=== PATIENT | male | born 1960 | race Caucasian/White ===

== ENCOUNTER 2018-07-26 02:17 | Inpatient (IN) | payer OTHER ==
[2018-07-26] VITALS (7 sets, daily range): BP systolic 104–151; BP diastolic 61–74
[~2018-07-26] VITALS: Ht 188 cm; Wt 129.3 kg
[~2018-07-26 02:17] MED LIST: BENADRYL25 MG PO; PREDNISONE 20 M20 MG PO
[2018-07-26] MEDS ORDERED: HYDROCHLOROTH12.5 M1 PO (02:23)
[2018-07-26] MEDS ORDERED: PRINIVIL10 MG PO (02:23)
[2018-07-26 03:13] LABS: ABSOLUTE NEUTROPHILS 6.1 thou/uL (1.4-8.2); BASOPHILS 0.7 % (0.0-2.0); EOSINOPHILS 1.2 % (0.0-3.0); HEMATOCRIT 46.8 % (42.0-52.0); HEMOGLOBIN 15.9 gm/dL (14.0-18.0); LYMPHOCYTES 19.2 % (24.0-44.0); MCH 30.9 pg (26.0-34.0); MCV 90.8 fL (80.0-100.0); PLATELET COUNT 202 thou/uL (150-400); POLYS 67.9 % (36.0-66.0); RBC 5.15 mil/uL (4.50-6.00); RDW 13.1 % (10.5-14.5); WBC 8.9 thou/uL (4.0-11.0)
[2018-07-26 03:19] LABS: CALCIUM 10.4 mg/dL (8.5-10.1); CREATININE 1.1 mg/dL (0.7-1.3); POTASSIUM 4.2 mmol/L (3.5-5.1)
[2018-07-26 05:15] LABS: URINE BILIRUBIN NEGATIVE (Negative); URINE BLOOD NEGATIVE (Negative); URINE CLARITY CLEAR; URINE COLOR YELLOW; URINE GLUCOSE-RANDOM* NEGATIVE (Negative); URINE KETONES NEGATIVE (Negative); URINE LEUKOCYTES NEGATIVE (Negative); URINE NITRITE NEGATIVE (Negative); URINE PROTEIN (DIPSTICK) NEGATIVE (Negative); URINE SPECIFIC GRAVITY >= 1.030 (1.005-1.035); URINE UROBILINOGEN 0.2 E.U./dl (0.2-1.0)
[2018-07-26] MEDS ORDERED: FLEXERIL PO (05:27)
--- NOTE | 2018-07-26 06:24 | NUR ---
pt lives alone
[2018-07-26] MEDS ORDERED: ASPIR 8181 MG PO (08:52)
--- NOTE | 2018-07-26 12:30 | NUR ---
chart review, pt up in bed eyes closed, open to calling of his name x 2. intro to cm, and transition of care . pt reported " live home alone, no step to enter, 15 with hr to basement but do not go down often. no dme, works outside home- standing allot. manage own medication " just 1 blood presser bill and still drive vehicle. have support from family and friends if needed. use [facility] [address] for rx, have bcbs. pcp dr arnold."/haley. no co during visit. will cont following as needed for dc needs.
[2018-07-26 13:27] LABS: URIC ACID* 7.8 mg/dL (2.6-7.2)
[2018-07-26 18:13] LABS: SOURCE SYNOVIAL
[2018-07-26 18:31] LABS: BF CRYSTALS No Crystals seen
--- NOTE | 2018-07-26 18:39 | NUR ---
PT A&OX4, VSS, DENIES PAIN BUT FEELS CRAMPING IN LEFT LEG. PT TOLERATED WALKING WITH PHYSICAL THERAPY WELL. PT STATES THE PAIN DECREASES WITH MOVEMENT. MRI DUE TOMORROW. FALL PRECAUTIONS IN PLACE. WILL CONTINUE TO MONITOR.
--- NOTE | 2018-07-26 20:25 | NUR ---
REPORT GIVEN TO RECEIVING NURSE IN SENIOR SUITES. SCD SLEEVES WITH PATIENT. DENIED PAIN. AMBULATED TO BATHROOM WITH STAND BY ASSIST AND WALKER, STEADY GAIT. DISCUSSED PROCESS AND PURPOSE OF TRANSFER BEFORE TAKEN DOWN TO SENIOR SUITES VIA WHEELCHAIR BY AIDE.
--- NOTE | 2018-07-26 23:44 | NUR ---
Pt transferred to at 2029. Oriented to the room and call light system. A/OX4,denied pain on assessment. VSS.Up with SBA/RW,ambulating with a limp gait.Voiding without any problems voiced.Resting quietly in bed at this time with no distress noted.Will continue to monitor pt.
[2018-07-27 08:28] VITALS: BP 130/73
--- NOTE | 2018-07-27 14:58 | NUR ---
ASSUMED CARE OF PATIENT THIS MORNING. PATIENT IS A&OX4. PATIENT WILL BE DISCHARGED HOME IN THE MORNING AFTER PHYSICAL THERAPY WORKS WITH PATIENT. HE IS BEEN UP AD SHANNAN WITHIN THE ROOM. HE TOLERATED HIS MORNING MEDICATIONS THIS MORNING. PATIENT IS CURRENTLY LYING IN BED. HE CALLS OUT LEONEL FOR ASSISTANCE.
--- NOTE | 2018-07-27 16:06 | NUR ---
CARE TEAM INDICATED THAT PT WILL LIKELY ME BADICALLY STABLE TO DC HOME WITH NO NEEDS TOMORROW. CM ABLE TO ASSIST SHOULD ANY NEEDS ARISE.
--- NOTE | 2018-07-27 19:41 | NUR ---
I AGREE WITH NURSING ASSESSMENT DONE BY LAURA/SOTO, AND NURSING NOTE.
[2018-07-27 20:20] VITALS: BP 101/61
[2018-07-27 23:03] VITALS: BP 101/61
--- NOTE | 2018-07-28 02:56 | NUR ---
Assumed pt. care at 1900. Remains A&Ox3; swallows meds whole w/o difficulty. Ambulates independently to bathroom w/ steady gait. Last BM 07/27/18, per pt. Remains on lovenox therapy; no s/s of bleeding noted. Kraig wrap intact to L knee. R hand SL intact/flushed w/ NS w/o difficulty. Pt. has no c/o pain or discomfort. No s/s of acute distress noted. Pt/ asleep in bed w/ call light/desired belongings within reach. Po fluids encouraged. Will continue to monitor.
[2018-07-28 07:40] VITALS: BP 134/93
[2018-07-28 10:04] VITALS: BP 134/93
--- NOTE | 2018-07-28 10:58 | NUR ---
ASSUMED CARE OF PATIENT THIS MORNING. PATIENT IS A&OX4. HE'S BEEN GETTING UP AD SHANNAN. PATIENT HAS ONLY COMPLAINED OF MINOR PAIN IN HIS L. KNEE THIS MORNING. HE TOLERATED HIS MORNING MEDICATION. PATIENT TOOK A SHOWER BEFORE BREAKFAST. NO ABNORMAL ASSESSMENT FINDINGS. PATIENT GOING HOME WITH SELF CARE. IV REMOVED BEFORE DISMISSAL. PATIENT WILL BE TAKEN TO OUTPATIENT PHARMACY TO VALUER HIS HOME MEDICATION. VOLUNTEER TRANSPORT PICKED PATIENT UP VIA WHEELCHAIR AND TOOK PATIENT TO VALUER PRESCRIPTION AND TOOK PATIENT TO EMERGENCY ROOM ENTRANCE FOR DEPARTURE. HE WILL FOLLOW UP WITH ORTHOPEDIC AN OUTPATIENT.
== END 2018-07-28 11:15 | disposition home or self-care (01) | DRG 563 ==
LOC: ER 02:17 → EROBS 06:18 → 4W 06:18 → SICU 20:53 → ENTRNSPT 07-28 10:50 → EDTRNSPTSTS 07-28 10:51 → SICU 07-28 11:15
PROVIDERS: Physician Assistant; Student in an Organized Health Care Education/Training Program; ADMIT Internal Medicine
DX: S83.412A Sprain of medial collateral ligament of left knee, initial encounter (principal); I10 Essential (primary) hypertension; M19.90 Unspecified osteoarthritis, unspecified site; M17.12 Unilateral primary osteoarthritis, left knee; T14.8XXA Other injury of unspecified body region, initial encounter; X58.XXXA Exposure to other specified factors, initial encounter; Y93.89 Activity, other specified; Y92.89 Other specified places as the place of occurrence of the external cause; Y99.8 Other external cause status; Z79.82 Long term (current) use of aspirin; Z79.899 Other long term (current) drug therapy
CPT/HCPCS: 15002

== ENCOUNTER 2019-07-02 20:12 | Inpatient (IN) | payer OTHER ==
[~2019-07-02] VITALS: Ht 188 cm; Wt 125.6 kg
[~2019-07-02 20:12] MED LIST changes: +ASPIR 8181 MG PO; +FLEXERIL PO; +HYDROCHLOROTH12.5 M1 PO; +MOBIC15 MG PO; +NORFLEX100 MG PO; +PRINIVIL10 MG PO; +VITAMIN B-12500 MCG PO
[2019-07-02 20:23] VITALS: BP 118/66
[2019-07-02] MEDS ORDERED: SPIRONOLACTONE25 MG PO (20:28)
[2019-07-02] MEDS ORDERED: FUROSEMIDE 20 M20 MG PO (20:29)
[2019-07-02] MEDS ORDERED: LISINOPRIL-HCT1 EACH PO (20:29)
[2019-07-02 21:03] LABS: ABSOLUTE NEUTROPHILS 6.5 thou/uL (1.4-8.2); BASOPHILS 0.6 % (0.0-2.0); EOSINOPHILS 0.3 % (0.0-3.0); HEMATOCRIT 42.8 % (42.0-52.0); HEMOGLOBIN 14.3 gm/dL (14.0-18.0); LYMPHOCYTES 10.6 % (24.0-44.0); MCH 29.9 pg (26.0-34.0); MCHC 33.4 g/dL (28.0-37.0); MCV 89.7 fL (80.0-100.0); PLATELET COUNT 187 thou/uL (150-400); POLYS 79.5 % (36.0-66.0); RBC 4.77 mil/uL (4.50-6.00); RDW 13.8 % (10.5-14.5); WBC 8.1 thou/uL (4.0-11.0)
[2019-07-02 21:11] LABS: CALCIUM 9.8 mg/dL (8.5-10.1); CREATININE 1.1 mg/dL (0.7-1.3); POTASSIUM 4.2 mmol/L (3.5-5.1)
[2019-07-02 21:18] LABS: ALBUMIN 2.9 g/dL (3.4-5.0); TOTAL BILIRUBIN 0.7 mg/dL (<0.1-1.0); TOTAL PROTEIN 7.7 g/dL (6.4-8.2)
[2019-07-02 21:36] LABS: BE(vivo) -2.4 mmol/L (-2 to +3); HCO3 20.2 mmol/L (22.0-26.0); PCO2 29.2 mmHg (35.0-45.0); PO2 61.9 mmHg (80.0-100.0); pH 7.458 (7.360-7.450); sO2 93.2 % (92.0-98.0)
[2019-07-03] VITALS (51 sets, daily range): BP systolic 92–166; BP diastolic 44–99
[2019-07-03 01:11] LABS: URINE BILIRUBIN NEGATIVE (Negative); URINE BLOOD NEGATIVE (Negative); URINE CLARITY CLEAR; URINE COLOR YELLOW; URINE GLUCOSE-RANDOM* NEGATIVE (Negative); URINE KETONES 1+ (Negative); URINE LEUKOCYTES-REFLEX NEGATIVE (Negative); URINE NITRITE-REFLEX NEGATIVE (Negative); URINE PROTEIN (DIPSTICK) TRACE (Negative)
[2019-07-03 03:41] LABS: HEMATOCRIT 39.2 % (42.0-52.0); HEMOGLOBIN 13.3 gm/dL (14.0-18.0); MCH 30.3 pg (26.0-34.0); MCHC 33.8 g/dL (28.0-37.0); MCV 89.6 fL (80.0-100.0); RBC 4.38 mil/uL (4.50-6.00); RDW 14.4 % (10.5-14.5); WBC 7.4 thou/uL (4.0-11.0)
[2019-07-03 03:50] LABS: CALCIUM 9.3 mg/dL (8.5-10.1); CREATININE 1.2 mg/dL (0.7-1.3); POTASSIUM 4.4 mmol/L (3.5-5.1)
--- NOTE | 2019-07-03 04:38 | NUR ---
Admission histoey ans assessments completed. Careplan initiated. Febrile. Frequent mostly dry cough. BP stable. Oxygen 2L/NC sats low to mid 90's. Drinking fluids. IVfluids infusing. Azithromax and Rocephin given apart-no c/o itching. Patient has history of unknown antibiotics that caused itching.
--- NOTE | 2019-07-03 13:07 | EKG ---
[facility] [place] [address] [place] [address] ELECTROCARDIOGRAM REPORT Name: ALFONZO ZEPEDA Room #: 247-P ADM IN M.R.#: [id number] Admission: 07/02/19 Attend Phys: Patel Hernandez MD Discharge: Date of : 60 Report #: [id number] THIS REPORT FOR: cc: [facility] - Clinic physician unknown [facility] [place] - Clinic physician unknown Eber Romano MD ~ THIS REPORT FOR: //name// [facility] ED Test Date: 2019-07-02 Test Time: 20:27:35 Pat Name: ALFONZO ZEPEDA Department: Room: [facility] Gender: M Senior Javascript Engineer: [facility] VALLEYElisabeth : 1960 Requested By: Mitchel Sánchez Order Number: [id number] MD: Eber Romano Measurements Intervals [place] Rate: 115 P: 41 MA: 141 QRS: 89 QRSD: 103 T: 9 QT: 314 QTc: 435 Interpretive Statements Sinus tachycardia Probable left atrial enlargement Borderline ST elevation, lateral leads No previous ECG available for comparison Electronically Signed On 07-03-2019 13:06:01 CDT by Eber Romano [email or web address] <ELECTRONICALLY SIGNED> By: Eber Romano MD 07/03/19 1306 26 26 Eber Romano MD /EPI
--- NOTE | 2019-07-03 14:48 | NUR ---
DR. WINTER HERE. WANTS PT IN NEGATIVE PRESSURE ROOM. COVID RESULTS PENDING AND SHOULD BE READY AT 1900. AGREES TO HOLD OFF ON TRANSFER UNTIL RESULTS COME IN. IF NEGATIVE, PT WILL TRANSFER TO CC TELE ROOM. IF POSITIVE, PT WILL TRANSFER TO - PRESSURE ROOM IN ICU. PT CURRENTLY ASLEEP. WILL GIVE COUGH MEDICINE WHEN HE WAKES UP.
--- NOTE | 2019-07-03 16:12 | NUR ---
COUGH SYRUP GIVEN WITH GOOD RESULTS. PT RESTING. TYLENOL FOR TEMP 39.4
--- NOTE | 2019-07-03 19:11 | NUR ---
END OF SHIFT NOTE. AWAITING COVID RESULTS. PT BETTER POST COUGH MEDICINE TYLENOL GIVEN X 1 FOR FEVER. PT CAN TRANSFER TO CC TELE IF COVID NEGATIVEN
--- NOTE | 2019-07-03 21:00 | NUR ---
PT AOX4. PT HAS A TEMP 101.9 AT 2100, TYLENOL GIVEN AND COOLING MEASURES IMPLEMENTED. PT GIVEN AN IS, ENCOURAGED TO DO SOME DEEP BREATHING EXERCISES. WILL CONTINUE TO MONITOR.
[2019-07-04] VITALS (27 sets, daily range): BP systolic 94–178; BP diastolic 28–96
[2019-07-04 11:17] LABS: HEMATOCRIT 41.4 % (42.0-52.0); HEMOGLOBIN 13.6 gm/dL (14.0-18.0); MCH 29.9 pg (26.0-34.0); MCHC 32.9 g/dL (28.0-37.0); MCV 90.9 fL (80.0-100.0); RBC 4.55 mil/uL (4.50-6.00); RDW 14.5 % (10.5-14.5); WBC 6.8 thou/uL (4.0-11.0)
[2019-07-04 11:26] LABS: CALCIUM 10.1 mg/dL (8.5-10.1); CREATININE 0.8 mg/dL (0.7-1.3)
[2019-07-04 11:29] LABS: POTASSIUM 4.5 mmol/L (3.5-5.1)
--- NOTE | 2019-07-04 13:26 | NUR ---
chart review. cm visited with pt via phone call. he was alert, to talk. intro to cm and transition of care. per pt " lives alone, stairs to basement that not have to go down 13, no dme, manage own medication. drives vehicle. primary care dr jacob in [facility]"/haley and chart. pt does not have home oxygen. will cont following as needed for dc needs.
[2019-07-04 15:37] LABS: BE(vivo) -0.6 mmol/L (-2 to +3); HCO3 22.6 mmol/L (22.0-26.0); PCO2 32.9 mmHg (35.0-45.0); PO2 78.1 mmHg (80.0-100.0); pH 7.455 (7.360-7.450); sO2 96.2 % (92.0-98.0)
--- NOTE | 2019-07-04 18:11 | NUR ---
ASSUMED CARE AT 0700. ASSESSMENTS DOCUMENTED. PT TACHYPNEIC INTERMITTENTLY THROUGHOUT DAY, DR HUGO AWARE, AN ABG DRAWN, NO NEW ORDERS RECEIVED. PLAN OF CARE IS INTUBATION VS. BIPAP BASED ON COVID-19 RESULTS. RESULTS STILL NOT PROCESSED. CONTINUES TO HAVE A DRY NON-PRODUCTIVE COUGH. METOPROLOL GIVEN 1X FOR SYSTOLIC/DIASTOLIC HYPERTENSION PER ORDER. ADEQUATE URINE OUTPUT. NO BM TODAY. PT NOT PROGRESSING TOWARDS PLAN OF CARE EVIDANCE BY INCREASED OXYGEN NEED. WILL CONTINUE TO MONITOR.
[2019-07-05] VITALS (19 sets, daily range): BP systolic 109–140; BP diastolic 50–90
--- NOTE | 2019-07-05 04:08 | NUR ---
ASSUMED CARE OF PATIENT AT 1900, PATIENT ALERT AND ORIENTED X4, NO COMPLAINTS OF PAIN. PATIENT HAS NON-CARDIAC CHEST DISCOMFORT WITH INTERMITTENT COUGHING SPELLS. PRN MEDICATION GIVEN TO HELP WITH SPELLS, DECREASING THROUGHOUT THE SHIFT. PATIENT ON 3L NASAL CANNULA, O2 SAT REMAINED ABOVE 90%. PATIENT COMPLETED ASSISTED BATH AND HAIR WASH, SHORTESS OF BREATH WITH ACTIVITY. NO SIGN OF ACUTE DISTRESS NOTED AT THIS TIME. WILL CONTINUE TO MONITOR.
[2019-07-05 04:27] LABS: BE(vivo) -4.9 mmol/L (-2 to +3); HCO3 19.3 mmol/L (22.0-26.0); PCO2 33.6 mmHg (35.0-45.0); PO2 86.5 mmHg (80.0-100.0); pH 7.377 (7.360-7.450); sO2 96.5 % (92.0-98.0)
[2019-07-05 06:47] LABS: ABSOLUTE NEUTROPHILS 4.1 thou/uL (1.4-8.2); BASOPHILS 0.3 % (0.0-2.0); EOSINOPHILS 1.1 % (0.0-3.0); HEMATOCRIT 37.8 % (42.0-52.0); HEMOGLOBIN 12.5 gm/dL (14.0-18.0); LYMPHOCYTES 15.8 % (24.0-44.0); MCH 29.4 pg (26.0-34.0); MCV 89.3 fL (80.0-100.0); MONOCYTES 11.8 % (1.0-8.0); PLATELET COUNT 267 thou/uL (150-400); RBC 4.23 mil/uL (4.50-6.00); WBC 5.7 thou/uL (4.0-11.0)
[2019-07-05 07:01] LABS: ALBUMIN 2.4 g/dL (3.4-5.0); CALCIUM 9.7 mg/dL (8.5-10.1); CREATININE 0.8 mg/dL (0.7-1.3); TOTAL BILIRUBIN 0.4 mg/dL (<0.1-1.0)
--- NOTE | 2019-07-05 10:35 | NUR ---
received voice message from claire with [facility] case management assistant [phone], offering assistance with dcp if needed. cm called claire back at [facility], no answer left message letting her know cm has received her message. will cont following as needed for dc needs.
--- NOTE | 2019-07-05 10:44 | NUR ---
ALERT AND ORIENTED AND VITALS STABLE AND DENIES PAIN. ASSESSMEENT DOCUMENTED. SISTER UPDATED OVER THE PHONE EARLIER TODAY. CONTINUES TO WAIT FOR LAB RESULTS AND LAB CALLED IN THIS REGARD. TOLERATING DIET W/O NAUSEA. VIODING PER URINAL. WILL CONTINUE WITH POC.
--- NOTE | 2019-07-05 16:03 | NUR ---
DR. CRUZ CONSULTED AND CAME TO SEE PATIENT AND CHANGED THE DRESSINGS ON BLE.
--- NOTE | 2019-07-06 05:12 | NUR ---
SEE Masher FOR ASSESSMENT. PT FRUSTRATED WITH PERSISTENT COUGHING, ABLE TO SLEEP OFF/ON. STATES COUGH MED WITH CODEINE HELSPS FOR A WHILE. CONT ON 3L NC. REMAINS TACHYPNIC. FEVER MAX 99.6 AX. CONT TO ENC DB. O2SAT >92%. REMAINS IN ISOLATION WITH STAFF [facility] ISSUED PPE. CONT PLAN OF CARE. PT PROGRESSING GOALS. COVID LAB PENDING.
[2019-07-06 06:42] LABS: HEMATOCRIT 39.1 % (42.0-52.0); HEMOGLOBIN 12.8 gm/dL (14.0-18.0); MCH 29.3 pg (26.0-34.0); MCHC 32.7 g/dL (28.0-37.0); MCV 89.5 fL (80.0-100.0); PLATELET COUNT 308 thou/uL (150-400); RBC 4.37 mil/uL (4.50-6.00); RDW 14.3 % (10.5-14.5); WBC 6.9 thou/uL (4.0-11.0)
[2019-07-06 06:53] LABS: ALBUMIN 2.4 g/dL (3.4-5.0); CALCIUM 9.9 mg/dL (8.5-10.1); CREATININE 0.9 mg/dL (0.7-1.3); POTASSIUM 4.4 mmol/L (3.5-5.1); TOTAL BILIRUBIN 0.4 mg/dL (<0.1-1.0); TOTAL PROTEIN 7.2 g/dL (6.4-8.2)
[2019-07-06 08:00] VITALS: BP 128/78
[2019-07-06 08:39] LABS: ABSOLUTE NEUTROPHILS 4.8 thou/uL (1.4-8.2); ATYPICAL LYMPHS 1 %; LARGE PLATELETS OCCASIONAL
--- NOTE | 2019-07-06 10:19 | HC ---
[facility] [place] [address] [place] [address] CONSULTATION Name: ALFONZO ZEPEDA Room #: [facility] IN M.R.#: [id number] Admission: 07/02/19 Attend Phys: Patel Hernandez MD Discharge: Date of : 60 Report #: [id number] THIS REPORT FOR: cc: [facility] - Clinic physician unknown [facility] - Clinic physician unknown Butch Landry MD ~ CC: [facility] unknown Patel Hernandez DATE OF SERVICE: 07/05/2019 CHIEF COMPLAINT: Venous ulcers, bilateral lower extremities. HISTORY OF PRESENT ILLNESS: This is a 59-year-old male patient who was admitted through the Emergency Department. He had presented to the Emergency Room with one week of fever, chills and cough that had been progressively worsening. He was noted to have significant infiltrates as well as hypoxia. He has been admitted to the hospital for further evaluation and treatment. Additionally, he has been followed at the wound center at [facility] and underwent a venous ablation procedure and has bilateral lower leg compression bandages in place that were scheduled to be removed today. I have been asked to see him with regard to wound care. PAST MEDICAL HISTORY: Positive for history of hypertension as well as sinus infections, venous ulcers, bilateral lower extremities. MEDICATIONS: Include spironolactone, Lasix, lisinopril and hydrochlorothiazide, aspirin, cyanocobalamin. ALLERGIES: Unknown. SOCIAL HISTORY: Negative for alcohol or tobacco use. FAMILY HISTORY: Noncontributory. REVIEW OF SYSTEMS: CONSTITUTIONAL: The patient does complain of fever and chills. Denies weight loss. NEUROLOGICAL: The patient denies focal weakness, numbness or tingling. EYES: The patient denies visual changes, redness, or drainage. ENT: The patient denies earache, nasal drainage, sore throat. CARDIOVASCULAR: The patient denies chest pain, palpitations or diaphoresis. PULMONARY: The patient denies cough and mild shortness of breath. GASTROINTESTINAL: The patient denies nausea, vomiting, diarrhea or abdominal pain. ORTHOPEDIC: The patient complains of pain, swelling and ulcerations, bilateral [facility] [address] [place] [address] CONSULTATION Name: ALFONZO ZEPEDA Room #: 247-P [facility] IN M.R.#: [id number] Admission: 07/02/19 Attend Phys: Patel Hernandez MD Discharge: Date of : 60 Report #: [id number] lower extremities. Other systems in 14-point review of systems are negative. PHYSICAL EXAMINATION: VITAL SIGNS: Include temperature 36.6, pulse 92, respiratory rate 37, blood pressure 124/50. GENERAL: This is a somewhat chronically ill-appearing male patient who appears to be in no obvious distress. HEENT: Head normocephalic. Nose and throat are clear. NECK: Supple. LUNGS: Clear. ABDOMEN: Soft. Bowel sounds present. EXTREMITIES: Examination of the lower extremities demonstrates feet are pink, warm and dry. Distal pulses are slightly diminished, although palpable. He has significant venous ulceration with surrounding venous stasis dermatitis to both lower extremities, more so on the right than on the left. These are not overtly infected. NEUROLOGIC: The patient is alert and oriented, moving all 4 extremities spontaneously. LABORATORY DATA: Include arterial blood gas pH 7.377, pCO2 of 33, pO2 of 86 on 3 liters nasal cannula. Sodium 132, potassium 4.0, chloride 100, CO2 of 24, BUN 12, creatinine 0.8, glucose 97, calcium is 9.7, alkaline phosphatase is 44. BNP is 59, total protein 7.0, albumin is 2.4. White blood cell count 5.7, hemoglobin 12.5. CLINICAL IMPRESSION: 1. Venous ulcerations, bilateral lower extremities, right greater than left. 2. Venous stasis dermatitis, bilateral lower extremities. 3. Atypical pneumonia with acute hypoxic respiratory failure. 4. Hypertension. 5. Moderate protein-calorie malnutrition with albumin of 2.4. RECOMMENDATIONS: At this point in time, the legs have been dressed with AmLactin lotion to the dry skin, Xeroform gauze to the open areas, covered by ABDs, Kerlix and Coban from toes to knees bilaterally. We will likely change these again every couple of days. I will recommend elevation of the lower extremities, continuation of current medications. He will need ongoing aggressive nutritional support to maximize wound healing. I appreciate being asked to see the patient in consultation. <ELECTRONICALLY SIGNED> By: Butch Landry MD 07/06/19 [id number] Butch Landry MD /nt
[2019-07-06 11:08] LABS: ADENOVIRUS Negative (Negative); INFLUENZA A Negative (Negative); INFLUENZA B Negative (Negative); METAPNEUMOVIRUS Negative (Negative); PARAINFLUENZA 1 Negative (Negative); PARAINFLUENZA 2 Negative (Negative); PARAINFLUENZA 3 Negative (Negative); RHINOVIRUS Negative (Negative); RSV A Negative (Negative); RSV B Negative (Negative)
[2019-07-06 12:01] VITALS: BP 128/55
[2019-07-06 13:44] VITALS: BP 187/92
--- NOTE | 2019-07-06 14:33 | NUR ---
WOUND CARE AND DIP FILLER ROUNDED ON PT. PT REFUSED TO LET THEM REMOVE THE BILAT LOWER LEG BHAVNA WRAPS AT THIS TIME. WOUND DR STATES HE WILL COME AND TRY AGAIN TO CHANGE THE DRESSINGS TOMORROW ON 07/07/19
--- NOTE | 2019-07-06 15:35 | NUR ---
SW reviewed chart and spoke with attending physician. Pt remains in Enhanced Isolation to r/o COVID-19. Pt to transfer to 3W when bed is available. Pt remains on 3L of O2. Wound care consulted. Following to assist as needed with discharge planning.
[2019-07-06 16:00] VITALS: BP 109/50
--- NOTE | 2019-07-06 18:30 | NUR ---
ASSUMED CARE AT 0700.PT A&OX4. PT ON 3L NC. PULSE OX REMAINED GREATER THAN 94% ON 3L. PT DENIES SOB. PT TRANSFERED TO 3W ROOM 354. PT'S SISTER NATALYA CALLED AND UPDATED ON PT STATUS AND ROOM TRANSFER. REPORT CALLED TO ROMAINE BURK. PT TRANSFERED VIA WHEELCHAIR.
--- NOTE | 2019-07-06 18:49 | NUR ---
PLEASE KEEP REICH WOUND TUB WITH SUPPLIES IN PT ROOM FOR DR. CHOI AND KHOI.
--- NOTE | 2019-07-06 18:52 | NUR ---
PATIENT ARRIVED VIA W/C AT 18:50 TO ROOM 354. PT ALERT XS 4. WEIGHT = 287.4 AND HEIGHT 6'2". PT STATES WORKS AT [employer] IN [place]. DIET HEART HEALTHY. O2 AT 3L/NC. POSITVE FOR COVID. IV L AC SL EXCEPT FOR IV ABT'S. PT CONT OF B&B USES URINAL. UP WITH ASSIST XS 1. TELE PATIENT NOC NURSE STATES HE WILL ATTACH LEADS. PT HAS PROD COUGH. USES KLEENEX. DR CARVALHO WOUND CARE WILL COME 07/07/19 AND CHANGE BHAVNA WRAPS AND DRESSINGS TO JESSE MURRY'S PATIENT HAD VEIN STRIPPING 2 WEEKS AGO. PT IS PLEASANT AND EASY GOING.
[2019-07-06 19:25] VITALS: BP 111/55
[2019-07-06 23:49] VITALS: BP 112/75
[2019-07-07 04:45] VITALS: BP 101/45
--- NOTE | 2019-07-07 05:21 | NUR ---
PT MAKING SLOW PROGRESS TOWARDS GOALS. ON O2 AT 3L PER NC OVERNIGHT. HAS OCCASIONAL HARSH AND CONGESTED SOUNDING COUGH. PT HAD REPORTED A WHITE COLOR TO THE SPUTUM. SAMPLE WAS OBTAINED BUT IT WAS CLEAR AND VERY LITTLE AMOUNT. REQUESTED ANOTHER SAMPLE FROM THE PATIENT. FREQUENTLY SOA AFTER COUGHING SPELLS. ENCOURAGED TO TAKE SLOW DEEP BREATHS THROUGH HIS NOSE AND EXHALE OUT HIS MOUTH. I.S. ENCOURAGED.
[2019-07-07 06:50] LABS: HEMATOCRIT 39.7 % (42.0-52.0); HEMOGLOBIN 13.1 gm/dL (14.0-18.0); MCH 29.6 pg (26.0-34.0); MCV 89.6 fL (80.0-100.0); RBC 4.42 mil/uL (4.50-6.00); RDW 13.9 % (10.5-14.5); WBC 7.1 thou/uL (4.0-11.0)
[2019-07-07 07:12] LABS: CALCIUM 10.2 mg/dL (8.5-10.1); CREATININE 0.9 mg/dL (0.7-1.3); POTASSIUM 4.2 mmol/L (3.5-5.1)
[2019-07-07 08:00] VITALS: BP 101/45
--- NOTE | 2019-07-07 10:05 | EKG ---
[facility] [place] [address] [place] [address] ELECTROCARDIOGRAM REPORT Name: ALFONZO ZEPEDA Room #: 354-P [facility] M.R.#: [id number] Admission: 07/02/19 Attend Phys: Patel Hernandez MD Discharge: Date of : 60 Report #: [id number] THIS REPORT FOR: cc: [facility] - Clinic physician unknown [facility] - Clinic physician unknown Eran Lorenz MD [facility] ~ THIS REPORT FOR: //name// [facility] Test Date: 2019-07-07 Test Time: 09:59:04 Pat Name: ALFONZO ZEPEDA Department: Room: 354 Gender: M Panel Raiser Operator: Cici PERALTA : 1960 Requested By: Zia Corbett Order Number: [id number] MD: Eran Lorenz Measurements Intervals [place] Rate: 110 P: 44 WV: 163 QRS: 75 QRSD: 111 T: -29 QT: 329 QTc: 446 Interpretive Statements Sinus tachycardia Nonspecific T abnormalities, inferior leads Baseline wander in lead(s) V3 Compared to ECG 07/02/2019 20:27:35 No significant change was found Electronically Signed On 07-07-2019 10:03:53 CDT by Eran Lorenz [email or web address] <ELECTRONICALLY SIGNED> By: Eran Lorenz MD, [facility] 07/07/19 1003 [id number] Eran Lorenz MD, [facility] /EPI
--- NOTE | 2019-07-07 11:56 | NUR ---
on-going assessment: PT TRANSFERED OUT OF THE ICU TO 3W AND IS SLOWLY PROGRESSING TOWARDS DISCHARGE GOALS. PT IS CURRENTLY ON 3L OF OXYGEN AND DOES NOT HAVE IT ARRANGED AT HOME. CM SPOKE WITH ATTENDING, WE WILL CONTINUE TO SEE HOW PATIENT PROGRESSING IN THE NEXT FEW DAYS. CM WILL CONTINUE TO FOLLOW TO ASSIST NEEDED.
[2019-07-07 14:07] LABS: HEP B SURFACE Ab(ANTI-HBS Non Reactive (()); HEPATITIS B SURFACE AG Negative (Negative); HIV ANTIBODY Non Reactive (Non Reactive)
[2019-07-07 16:00] VITALS: BP 131/84
--- NOTE | 2019-07-07 16:38 | NUR ---
PATIENT NOW RESTING IN BED AT THIS TIME. RESPIRATIONS ARE EVEN NON LABORED. STATED THAT WRAPS TO HIS BLE WERE TOO TIGHT. SMALL CUT MADE TO THE BOTTOM OF WRAP THE RELIEF PRESSURE. HE IS NOW SLEEPING. WILL CONT WIHT PLAN OF CARE.
[2019-07-07 19:39] VITALS: BP 138/84
--- NOTE | 2019-07-07 21:05 | NUR ---
Pt alert and orientedx4, Afebrile Hr SR-ST 90's to 128. Tachy when sitting up at BS to urinate. Frequent cough noted. Mucinex 1200 ER given. Informed pt we need a sputum sample if he is able to cough anything up. Zofran given IV for nausea. Tylenol 2 tabs given for rib pain from coughing which he stated is not new. IV abx infusing without difficulty. Will continue to monitor pt for changes.
[2019-07-07 22:37] VITALS: BP 115/73
[2019-07-08 01:48] VITALS: BP 125/56
--- NOTE | 2019-07-08 02:15 | NUR ---
afebrile at this time. he needs reminding that he needs, to relax and just rest. denies pain, he is using the urinal and just trying to sleep. he is drinking plenty of fluids. leg wraps are staying in place. careplan reviewed
[2019-07-08 08:30] VITALS: BP 133/68
--- NOTE | 2019-07-08 09:59 | NUR ---
Assess due to length of stay. Admit with pneumonia, +COVID 19. Tolerating food and beverage intake, wts stable within past ranges 270-285 lb from 1 yr ago. Low nutrition risk
--- NOTE | 2019-07-08 11:34 | NUR ---
ON-GOING ASSESSMENT: CM REVIEWED CHART AND SPOKE WITH ATTENDING. PT HAS INCREASED NEED FOR 02 TODAY, 5L CURRENTLY. THERE IS SOME IMPROVEMENT IN PATIENTS CHEST XRAY. PT WILL CONTINUE ANBX AND WILL SEE HOW PATIENT IS PROGRESSING IN A FEW DAYS. NO ANTICIPATED DISCHARGE OVER THE WEEKEND, CM WILL CONTINUE TO FOLLOW TO ASSIST NEEDED.
[2019-07-08 12:00] VITALS: BP 121/58
[2019-07-08 12:42] LABS: HEMATOCRIT 38.9 % (42.0-52.0); HEMOGLOBIN 13.2 gm/dL (14.0-18.0); MCH 30.2 pg (26.0-34.0); MCHC 33.8 g/dL (28.0-37.0); MCV 89.3 fL (80.0-100.0); PLATELET COUNT 407 thou/uL (150-400); RBC 4.36 mil/uL (4.50-6.00); RDW 13.9 % (10.5-14.5); WBC 8.1 thou/uL (4.0-11.0)
[2019-07-08 12:55] LABS: BE(vivo) -0.1 mmol/L (-2 to +3); HCO3 25.7 mmol/L (22.0-26.0); PCO2 46.5 mmHg (35.0-45.0); PO2 78.2 mmHg (80.0-100.0); pH 7.361 (7.360-7.450); sO2 95.1 % (92.0-98.0)
[2019-07-08 13:06] LABS: ALBUMIN 2.5 g/dL (3.4-5.0); ANION GAP 9 mmol/L (7-16); BUN 15 mg/dL (7-18); CALCIUM 10.5 mg/dL (8.5-10.1); CHLORIDE 99 mmol/L (98-107); CO2 26 mmol/L (21-32); CREATININE 0.9 mg/dL (0.7-1.3); GLUCOSE 103 mg/dL (74-106); POTASSIUM 4.3 mmol/L (3.5-5.1); SGOT 59 U/L (15-37); SGPT 92 U/L (30-65); SODIUM 134 mmol/L (136-145); TOTAL BILIRUBIN 0.5 mg/dL (<0.1-1.0); TOTAL PROTEIN 7.6 g/dL (6.4-8.2); TROPONIN-I <0.06 ng/mL (<0.06)
[2019-07-08 13:29] LABS: ABSOLUTE NEUTROPHILS 5.8 thou/uL (1.4-8.2); PLATELET ESTIMATE NORMAL
[2019-07-08 16:10] VITALS: BP 133/55
--- NOTE | 2019-07-08 17:39 | NUR ---
ASSUMED PATIENT CARE AT 0700. A/O X4. NOTED 86% FIO2 ON 2L. INCREASED O2 TO 6L IN AM. PATIENT VSS, AFEBRILE. PATIENT NOW IS AT 3L/NC. PROGRESSING TOWARDS POC GOALS.
[2019-07-08 19:28] VITALS: BP 117/71
--- NOTE | 2019-07-09 04:19 | NUR ---
Pt. rested quietly at intervals during the night when checked on during frequent rounds. He offers no c/o pain or shortness of air. O2 on at 3L per a nasal canula and O2 saturations have been in the mid 90's. He has bilateral lower extremity dressings and has been observed pulling on them. Pt. has been useing the urinal. Non-productive congested cough present and head of the bed elevated.
--- NOTE | 2019-07-09 05:11 | NUR ---
PT ALERT AND ORIENTED WITH PERIODS OF MILD CONFUSION. PULLS OFF LEADS AND CLOTHES O2 ETC PERIODICALLY. VSS AFEBRILE EXCEPT SAT WAS 86 ON 3 L NS AT START OF SHIFT. INCREASED O2 TO 4L SAT WENT TO 92%. RT WAS NOTIFIED. HE STATED HE WOULD MAKE SURE PT RECEIVED HIS TX Q 4 HRS. NO C/O PAIN. NO SKIN BREAKDOWN NOTED . LEGS WRAPPED. CALL LIGHT IN REACH, BED DOWN IN LOW LOCKED POSITION. REPORT GIVEN TO SHIRA GAVIN WHOM ASSUMED CARE OF PT AROUND 2100.
[2019-07-09 05:15] LABS: BE(vivo) 0.2 mmol/L (-2 to +3); HCO3 25.2 mmol/L (22.0-26.0); PO2 73.9 mmHg (80.0-100.0); pH 7.396 (7.360-7.450); sO2 94.8 % (92.0-98.0)
[2019-07-09 05:57] VITALS: BP 109/68
[2019-07-09 06:16] LABS: BASOPHILS 0.5 % (0.0-2.0); EOSINOPHILS 2.9 % (0.0-3.0); HEMATOCRIT 40.6 % (42.0-52.0); HEMOGLOBIN 13.7 gm/dL (14.0-18.0); MCH 30.1 pg (26.0-34.0); MCHC 33.6 g/dL (28.0-37.0); MCV 89.3 fL (80.0-100.0); MONOCYTES 11.8 % (1.0-8.0); PLATELET COUNT 441 thou/uL (150-400); POLYS 66.8 % (36.0-66.0); RBC 4.55 mil/uL (4.50-6.00); RDW 14.1 % (10.5-14.5); WBC 7.4 thou/uL (4.0-11.0)
[2019-07-09 06:30] LABS: ALBUMIN 2.7 g/dL (3.4-5.0); CALCIUM 10.2 mg/dL (8.5-10.1); CREATININE 0.8 mg/dL (0.7-1.3); POTASSIUM 4.7 mmol/L (3.5-5.1); TOTAL BILIRUBIN 0.5 mg/dL (<0.1-1.0); TOTAL PROTEIN 7.1 g/dL (6.4-8.2)
[2019-07-09 08:16] VITALS: BP 106/64
[2019-07-09 15:48] VITALS: BP 134/75
--- NOTE | 2019-07-09 17:18 | NUR ---
ASSUMED PATIENT CARE AT 0700. A/O X4. UP WALK IN ROOM. TOLERATED 4L/NC. GOOD APPETITE. JESSE WRAP IN PLACE. PROGRESSING TOWARDS POC GOALS.
[2019-07-09 19:02] VITALS: BP 127/72
--- NOTE | 2019-07-09 20:58 | NUR ---
PT SITTING UP IN LOUNGE CHAIR WATCHING TV. INDEP WITH TRANSFERS. LOVENOX AND IV ANTIBIOTIC. O2 4L, LUNGS WITH CRACKLES. BLE WRAPPED FROM VARICOSE VEIN SURGERY, BLE EDEMA +2. PT A0X4 BUT IMPULSIVELY MAKES REQUEST FROM STAFF AFTER THEY HAVE LEFT THE ROOM. PT ASKING QUESTIONS RE HOW LONG HE WILL BE IN HOSPITAL, THAT HE WAS TOLD 5 MORE DAYS. PT STATED HE DOES NOT KNOW WHERE HE GOT THE VIRUS FROM BUT THAT HE WORKS AT A [employer]. PT REQUESTED SNACKS AND PROVIDED.
--- NOTE | 2019-07-10 00:29 | NUR ---
PT CALLED OUR RE SOA. O2 SAT 97% AND PT WAS ASLEEP IN HIS CHAIR AND HAD TO BE AWAKENED. PT STATED HE DOES NOT KNOW WHAT HE NEEDS. WILL UPDATE RT. PT ENCOURAGED TO RETURN TO SLEEPING AND HAD HIS ANXIETIES VALIDATED.
[2019-07-10 03:29] VITALS: BP 103/56
[2019-07-10 08:10] VITALS: BP 127/77
[2019-07-10 12:17] VITALS: BP 121/66
--- NOTE | 2019-07-10 13:40 | NUR ---
pt is A&O X3, PT IS CONTINUING O2 3L-4L/MIN/NC TO KEEP O2SAT 92-96%, T'S VS ARE STABLE, PT STILL HAS SOB WITH ACTIVITIES, PT IS COTINUING IV ABX AND MEDICATIONS FOR POSITIVE COVID, PT GETS UP CHAIR AND WALK TO BATHROOM BY HIMSELF, PT DENIES PAIN AND N/V AT THIS TIME.
[2019-07-10 17:00] VITALS: BP 115/75
[2019-07-10 19:22] VITALS: BP 128/59
--- NOTE | 2019-07-10 20:42 | NUR ---
PT RESTING IN BED, VERBALIZED BEING DEPRESSED AND NOT HAVING ANYTHING TO WATCH ON TV. PT ENCOURAGED TO WATCH MOVIE ON PHONE AND PROVIDED SNACK. PT UP IN CHAIR AND WATCHING MOVIE ONCE NURSE RETURNED. BLE EDEMA +1 AND LEG WRAPS INTACT. LUNGS WHEEZES. NOT COUGHING TONIGHT. SISTER CALLED FOR UPDATE. 02 PER NC 3L. REMAINS STEADY WITH AMBULATION.
[2019-07-11 05:23] VITALS: BP 115/75
[2019-07-11 05:35] LABS: HEMATOCRIT 42.7 % (42.0-52.0); HEMOGLOBIN 14.4 gm/dL (14.0-18.0); MCH 30.1 pg (26.0-34.0); MCHC 33.7 g/dL (28.0-37.0); MCV 89.3 fL (80.0-100.0); RBC 4.78 mil/uL (4.50-6.00); RDW 14.1 % (10.5-14.5)
--- NOTE | 2019-07-11 05:39 | NUR ---
PT WENT TO SLEEP EARLIER TONIGHT THAN LAST NIGHT, APPROXIMATELY 0100. PT WAS COUGHING THIS AM. NO FURTHER STATEMENTS RELATED FEELING DEPRESSED.
[2019-07-11 08:00] VITALS: BP 140/80
[2019-07-11 12:07] VITALS: BP 142/92
--- NOTE | 2019-07-11 13:18 | NUR ---
WILL reviewed chart and spoke with nursing and attending physician. Pt remains in Enhanced Isolation for COVID-19. Pt is requiring 2L of O2. Therapy ordered to evaluate pt. Repeat COVID-19 test will be completed. Pt is slowly progressing towards goals for discharge. SW spoke with pt via phone. Pt provided SW with number for his employer, [employer], to provide documentation regarding pt's hospitalization. SW placed call to [phone]. No option to leave voice message at number. Pt states that SW needs to contact [employer] in HR. SW will call back at a later time. WILL is following to assist as needed with discharge planning.
--- NOTE | 2019-07-11 14:25 | NUR ---
PT IS A&OX3, PT'S O2 HAS REDUCED TO 2L/MIN/NC FROM 3L/MIN/NC, PT'S O2SAT KEEPS AT 92%-95%, PT'S VS ARE STABLE, PT HAS SOB WITH EXERTION, PT'S IV ABX HAS CHANGED TO PO, PT GETS UP TO CHAIR AND PT DENIES PAIN,N/V AT THIS TIME, PT IS CONTINUING IOSLATION FOR POSITIVED COVID. PT HAS NEW ORDER PT/OT TODAY.
[2019-07-11 16:18] VITALS: BP 108/74
--- NOTE | 2019-07-11 18:25 | NUR ---
WOUND DR HAS CHECKED PT'S BLE WOUND , WOUND NURSE HAS CHANGED PT'S BLE WOUND DRESSING, PT IS TOLERATED WITH WOUND CARE , PT STILL HAS SOME DRY CAUGHING, PT GETS UP TO CHAIR AND HE IS RELAXING NOW .
[2019-07-11 19:58] VITALS: BP 11/67; BP 111/67
[2019-07-12 04:10] VITALS: BP 120/80
--- NOTE | 2019-07-12 04:22 | NUR ---
Patient making progress towards outcome goals. Oxygen at 2L/NC sat mid 90's. short of air with activity, cough non productive. Vital signs stable. Low fall risks, up adlib, gait steady. Intake and output adequate. Bilateral lower leg dressing dry and intact.
[2019-07-12 08:13] VITALS: BP 113/66
--- NOTE | 2019-07-12 09:44 | NUR ---
WILL reviewed chart. WILL left voice message for [employer] in HR at pt's employer, [employer]. . Awaiting call back to determine what documentation is needed to provide to pt's employer. Pt is progressing towards goals for discharge home. Therapy has evaluated pt and discharged pt off their service. Pt remains on 2L of continuous O2. Will need rest/exercise oximetry to determine if home O2 is needed. WILL is following to assist as needed with discharge planning.
--- NOTE | 2019-07-12 12:05 | NUR ---
PT CARE ASSUMED AT 0700, PT ALERT AND ORIENTED X4, DENIES CHEST PAIN, NAUSE AND VOMITING. NO SIGNS OF DISTRESS NOTED. PT IS ON 2L OF OXYGEN, WNL. PT IS UP IN CHAIR. DENIES ANY NEEDS AT THE MOMENT. CALL LIGHT AND TABLE WITHIN REACH. CHAIR ALARM ON. WILL CONTINUE TO MONITOR.
[2019-07-12 15:58] VITALS: BP 109/63
[2019-07-12 19:37] VITALS: BP 112/79
--- NOTE | 2019-07-12 20:13 | NUR ---
Pt alert and oriented x4. VSS Afebrile. Lungs sound better clear uppers diminished bases. Unlabored on RA. Vois per urinal. No c/o pain.No s/s distress.
[2019-07-13 04:24] VITALS: BP 106/81
--- NOTE | 2019-07-13 05:00 | NUR ---
Pt alert and orientedx 4. VSS. 99.3 HRR Lungs clear uppers diminished baqses. Enc use of is w/a. Moisure barrier applied to perineal area. enc. pt to turn side to side. No s/s skin breakdown noted. No c/o pain. No s/s distress. Progressing slowly towards d/c goals.
--- NOTE | 2019-07-13 05:08 | NUR ---
Pt is alert and oriented x4 . VSS afebrile. Sats wnl. Denied pain. requested something for sleep. Informed him we can not give sleeping pills out this late at night. Will ask day shift ns to get an order today. lungs sound clear uppers with diminshed bases and unlabored on RA. Progressing slowly towards d/c goals. No s/s skin breakdown.
[2019-07-13 08:00] VITALS: BP 139/76
[2019-07-13] MEDS ORDERED: HYDROCHLOROTHIA25 M2 PO (10:14)
[2019-07-13] MEDS ORDERED: PROMETHAZINE-C473 ML PO (10:14)
[2019-07-13] MEDS ORDERED: CEFDINIR300 MG PO (10:14)
[2019-07-13] MEDS ORDERED: MUCINEX600 MG PO (10:14)
--- NOTE | 2019-07-13 12:03 | NUR ---
WILL reviewed chart and spoke with nursing and attending physician. Pt's repeat COVID-19 test is pending. Pt is afebrile and on room air. Pt has discharge orders to discharge home today. WILL spoke with Wesley Hope, sales representative groceries at pt's employer, who is requesting documentation and work release date. WILL contacted Director of Case Mgmt to determine what documentation will be provided. Pt will need transportation home. WILL is following to assist as needed with discharge planning.
--- NOTE | 2019-07-13 13:25 | NUR ---
0700 PT CARE ASSUMED AT 0700, PT ALERT AND ORIENTED X4, DENIES CHEST PAIN, NAUSEA AND VOMITING. PT IS ON ROOM AND VITALS SIGNS ARE WITHIN NORMAL LIMIT, NO SIGNS OF DISTRESS NOTED. PT DENIES ANY NEEDS AT THE MOMENT. CALL LIGHT AND TABLE WITHIN REACH. PT IS UP IN CHAIR. WILL CONTINUE TO MONITOR.
[2019-07-13 14:46] VITALS: BP 139/76
[2019-07-13] MEDS ORDERED: WORK RELEASE (15:09)
--- NOTE | 2019-07-13 17:26 | NUR ---
Spoke with patient and explained need for compliance with HH and follow up testing. Patient continued to ask for different ways to be tested including coming to Emergency Rooms, going to different doctor offices. Reiterated HH will do the testing and their results he can obtain. Once he has his results he can continue to work with his employer and follow their return to work guidelines. Again discussed and questioned patient if he understood and he verbalized he understood that HH will be doing his follow up testing. Discussed with SW the above.
[2019-07-13 17:30] VITALS: BP 133/75
--- NOTE | 2019-07-13 17:57 | NUR ---
DISCHARGE NOTE: WILL reviewed chart and spoke with nursing, attending physician and companion. Pt is medically stable for discharge home today. Pt's repeat COVID-19 test is positive. WILL spoke with Wesley Hope in HR dept at pt's employer. Faxed requested info to . Pt will need two negative COVID-19 tests prior to returning to work per CDC guidelines. Pt is off O2 and afebrile today. WILL spoke with pt via phone at length today regarding need to self quarantine and have COVID test repeated in order to return to work. Pt states he will go to his PCP's office or to an ER for the test. WILL explained that his PCP's office (Dr. Jose Kaye at [facility] in [facility]) may not have the ability to do the test in their office as well. Most physician offices will direct pt's to an ER. Pt may not qualify to have a test if not showing any signs/symptoms. Pt was reluctantly agreeable with services. Pt states he has a large dog, that does not do well with visitors. WILL asked if the dog can be left in a closed room while HH visits. Pt continued to state that he did not want HH and would have the test done elsewhere, so he can go back to work. WILL explained in detail that in order to return to work, he must have two negative test results. WILL contacted HH agencies to see if COVID tests can be done in the home setting. [facility] is not the preferred HH agency with pt's insurance, but can provide in-home COVID tests. WILL contacted [facility] and spoke with Joe. [facility] received insurance authorization and can admit pt on service. WILL faxed clinical info and finalized discharge orders/summary to [facility] and received confirmation. Contact info for [facility] placed in pt's discharge summary. Pt to drive himself home. Pt provided with education regarding CDC info re: COVID-19. WILL received call from pt's mother, Cass, requesting an update. WILL provided info. Pt's mother states that his family will continue to call and check on him via phone. Pt's family to assist with food delivery to pt while he is in quarantine. WILL vouched for pt's new medications in [facility]. Total cost $48.82. Discussed with Director of Case Mgmt, who authorized paying for meds. Director of Case Mgmt also discussed discharge plan and need for self-quarantine and follow up care with pt. No additional SW needs identified at this time, but is available to assist should needs arise.
[2019-07-13 18:24] VITALS: BP 139/76
--- NOTE | 2019-07-13 19:22 | NUR ---
PT BELONGINGS PACKED IN DOUBLE BAGS, CLEANING AND DISINFECTING PACKAGE, MEDICATION LIST [facility] EDUCATION AND SIDE EFFECTS AND DISCHARGE PAPER WORK EXPLAIN AND GIVEN TO PT. PT WOUND DRESSING CHANGE PER ORDER. PT STATED UNDERTANDING OF EDUCATION. PT TAKEN DOWN BY WILL CHAIR.
--- NOTE | 2019-07-14 09:59 | NUR ---
WILL spoke with Wesley Hope, HR dept at pt's employer to confirm all info was received. Wesley has already spoken with pt earlier today. Per employer, pt will not be able to return to work for 14 days and two negative COVID tests. Pt is aware this is needed. WILL provided [facility] info to HR. No additional SW needs identified at this time, but is available to assist should needs arise.
== END 2019-07-13 16:52 | disposition home health service (06) | DRG 177 ==
LOC: ER 20:12 → EROBS 23:24 → 3W 23:24 → ICU 23:24 → 3W 23:24 → ICU 23:54 → 3W 07-06 18:07
PROVIDERS: Hospitalist; Internal Medicine Pulmonary Disease; Nurse Practitioner Family; Pediatrics; Physician Assistant; Specialist; ADMIT Hospitalist
DX: U07.1 COVID-19 (principal); L89.613 Pressure ulcer of right heel, stage 3; J96.01 Acute respiratory failure with hypoxia; J12.89 Other viral pneumonia; L97.829 Non-pressure chronic ulcer of other part of left lower leg with unspecified severity; L97.819 Non-pressure chronic ulcer of other part of right lower leg with unspecified severity; E44.0 Moderate protein-calorie malnutrition; J44.0 Chronic obstructive pulmonary disease with (acute) lower respiratory infection; N17.9 Acute kidney failure, unspecified; I10 Essential (primary) hypertension; I87.2 Venous insufficiency (chronic) (peripheral); I49.3 Ventricular premature depolarization; Z88.8 Allergy status to other drugs, medicaments and biological substances; Z68.35 Body mass index [BMI] 35.0-35.9, adult; Z79.899 Other long term (current) drug therapy
CPT/HCPCS: 10078; 10203; 10779; 10879

== ENCOUNTER 2019-08-10 13:20 | Emergency (ER) | payer OTHER ==
[~2019-08-10] VITALS: Ht 182.9 cm; Wt 108.9 kg
[~2019-08-10 13:20] MED LIST changes: +CEFDINIR300 MG PO; +FUROSEMIDE 20 M20 MG PO; +HYDROCHLOROTHIA25 M2 PO; +LISINOPRIL-HCT1 EACH PO; +MUCINEX600 MG PO; +PROMETHAZINE-C473 ML PO; +SPIRONOLACTONE25 MG PO; +WORK RELEASE
[2019-08-10 14:12] LABS: EOSINOPHILS 1.2 % (0.0-3.0); HEMATOCRIT 46.8 % (42.0-52.0); HEMOGLOBIN 15.9 gm/dL (14.0-18.0); LYMPHOCYTES 19.5 % (24.0-44.0); MCH 30.9 pg (26.0-34.0); MCV 90.8 fL (80.0-100.0); MONOCYTES 11.4 % (1.0-8.0); POLYS 66.9 % (36.0-66.0); RBC 5.15 mil/uL (4.50-6.00); RDW 15.2 % (10.5-14.5)
[2019-08-10 14:32] LABS: ANION GAP 7 mmol/L (7-16); BUN 20 mg/dL (7-18); CALCIUM 10.9 mg/dL (8.5-10.1); CHLORIDE 95 mmol/L (98-107); CO2 29 mmol/L (21-32); CREATININE 0.9 mg/dL (0.7-1.3); GLUCOSE 107 mg/dL (74-106); SODIUM 131 mmol/L (136-145)
[2019-08-10 14:33] LABS: POTASSIUM 5.4 mmol/L (3.5-5.1)
[2019-08-10 14:43] LABS: ALBUMIN 4.1 g/dL (3.4-5.0); SGOT 32 U/L (15-37); SGPT 46 U/L (16-63); TOTAL BILIRUBIN 0.6 mg/dL (<0.1-1.0); TOTAL PROTEIN 7.9 g/dL (6.4-8.2); TROPONIN-I <0.06 ng/mL (<0.06)
[2019-08-10 14:59] LABS: PLATELET COUNT 266 thou/uL (150-400)
[2019-08-10 15:24] VITALS: BP 123/84
--- NOTE | 2019-08-11 08:03 | EKG ---
[facility] [place] [address] [place] [address] ELECTROCARDIOGRAM REPORT Name: ALFONZO ZEPEDA Room #: DEP [facility]#: [id number] Admission: 08/10/19 Attend Phys: Discharge: 08/10/19 Date of : 60 Report #: [id number] THIS REPORT FOR: cc: [facility] - Clinic physician unknown [facility] - Clinic physician unknown Eran Lorenz MD [facility] THIS REPORT FOR: //name// [facility] ED Test Date: 2019-08-10 Test Time: 13:41:12 Pat Name: ALFONZO ZEPEDA Department: Room: Gender: Erp Developer: [facility] : 1960 Requested By: Vi Lo Order Number: [id number] MD: Eran Lorenz Measurements Intervals [place] Rate: 103 P: 36 MD: 149 QRS: 80 QRSD: 104 T: 7 QT: 339 QTc: 444 Interpretive Statements Sinus tachycardia Abnormal R-wave progression, early transition Compared to ECG 07/07/2019 09:59:04 T-wave abnormality no longer present Electronically Signed On 08-11-2019 8:01:36 CDT by Eran Lorenz [email or web address] <ELECTRONICALLY SIGNED> By: Eran Lorenz MD, FACC 08/11/19 0801 1341 1341 Eran Lorenz MD, [facility] /EPI
== END 2019-08-10 15:26 | disposition home or self-care (01) ==
LOC: ER 13:20
PROVIDERS: Emergency Medicine
DX: J06.9 Acute upper respiratory infection, unspecified (principal); R07.89 Other chest pain; I10 Essential (primary) hypertension; Z88.1 Allergy status to other antibiotic agents